=== PATIENT | male | born 1995 | race Caucasian/White ===

== ENCOUNTER 2020-12-02 19:09 | Inpatient (IN) | payer OTHER ==
[2020-12-02 19:32] VITALS: BMI 24.1
[2020-12-02] MEDS ORDERED: ONDANSETRON *ODT* 4 MG TABLET SL PRN (21:01)
[2020-12-02] MEDS ORDERED: ACETAMINOPHEN 325 MG TABLET (FP) PO PRN ×2 (21:01)
[2020-12-02] MEDS ORDERED: MAG HYDROX/AL HYDROX/SIMETH 30 ML UNIT-DOSE CUP PO PRN (21:01)
[2020-12-02] MEDS ORDERED: MAGNESIUM HYDROX 2400MG/30ML ORAL SUSPENSION 30 ML CUP PO PRN (21:01)
[2020-12-02] MEDS ORDERED: BISMUTH SUBSALICYLATE 524 MG/30 ML UD PO PRN (21:01)
[2020-12-02] MEDS ORDERED: MENTHOL/PHENOL 1 EACH UD MM PRN (21:01)
[2020-12-02] MEDS ORDERED: IBUPROFEN 400 MG TABLET (FP) PO PRN (21:01)
[2020-12-02] MEDS ORDERED: MAGNESIUM CITRATE 300 ML BOTTLE PO PRN (21:01)
[2020-12-02] MEDS ORDERED: MELATONIN 5 MG TABLETS PO SCH (22:00)
[2020-12-02] MEDS: AMOXICILLIN 500 MG CAPSULE (FP) PO SCH (22:43)
[2020-12-02] MEDS: diazePAM 5 MG TABLET PO SCH (22:54)
[2020-12-02] MEDS: THIAMINE HCL 100 MG TABLET (FP) PO SCH (22:55)
[2020-12-03] MEDS: diazePAM 5 MG TABLET PO SCH ×4 (05:58→22:02)
[2020-12-03] MEDS: AMOXICILLIN 500 MG CAPSULE (FP) PO SCH ×3 (05:59→22:03)
[2020-12-03 11:17] LABS: ALBUMIN 3.5 g/dl (3.4-5.0); CALCIUM 9.6 mg/dL (8.5-10.1)
[2020-12-03 11:18] LABS: BLOOD UREA NITROGEN 9.7 mg/dL (7-18)
[2020-12-03] MEDS: PRENATAL VITAMINS W/ FOLIC ACID TABLET (FP) PO SCH (11:34)
[2020-12-03 11:39] LABS: PLATELET COUNT 181 K/MM3 (134-434); WHITE BLOOD COUNT 6.9 K/mm3 (4.0-10.0)
[2020-12-03 11:44] LABS: HEMATOCRIT 41.9 % (35.4-49); HEMOGLOBIN 14.5 GM/dL (11.7-16.9); MCH 32.1 pg (25.7-33.7); MCHC 34.5 g/dl (32.0-35.9); MEAN PLT VOLUME 8.4 fl (7.5-11.1); RBC 4.51 M/mm3 (4.00-5.60); RDW 14.4 % (11.9-15.9)
[2020-12-03] MEDS: diazePAM 5 MG TABLET PO PRN ×2 (13:34→20:06)
[2020-12-03] MEDS: NICOTINE POLACRILEX 2 MG GUM BUC PRN (18:00)
[2020-12-03] MEDS: MELATONIN 5 MG TABLETS PO SCH (22:01)
[2020-12-03] MEDS: THIAMINE HCL 100 MG TABLET (FP) PO SCH (22:01)
[2020-12-04] MEDS: diazePAM 5 MG TABLET PO PRN ×3 (00:36→17:28)
[2020-12-04] MEDS: AMOXICILLIN 500 MG CAPSULE (FP) PO SCH ×3 (05:33→22:24)
[2020-12-04] MEDS: diazePAM 5 MG TABLET PO SCH ×3 (05:34→22:22)
[2020-12-04] MEDS: PRENATAL VITAMINS W/ FOLIC ACID TABLET (FP) PO SCH (10:03)
[2020-12-04] MEDS: METHOCARBAMOL 500 MG TABLET PO PRN (22:24)
[2020-12-04] MEDS: THIAMINE HCL 100 MG TABLET (FP) PO SCH (22:24)
[2020-12-04] MEDS: MELATONIN 5 MG TABLETS PO SCH (22:25)
[2020-12-04] MEDS: NICOTINE POLACRILEX 2 MG GUM BUC PRN (22:55)
[2020-12-05] MEDS: diazePAM 5 MG TABLET PO SCH ×2 (05:32→17:36)
[2020-12-05] MEDS: AMOXICILLIN 500 MG CAPSULE (FP) PO SCH ×3 (05:32→22:08)
[2020-12-05] MEDS: diazePAM 5 MG TABLET PO PRN ×2 (10:19→20:55)
[2020-12-05] MEDS: PRENATAL VITAMINS W/ FOLIC ACID TABLET (FP) PO SCH (10:19)
[2020-12-05] MEDS: MELATONIN 5 MG TABLETS PO SCH (22:08)
[2020-12-05] MEDS: THIAMINE HCL 100 MG TABLET (FP) PO SCH (22:08)
[2020-12-05] MEDS: METHOCARBAMOL 500 MG TABLET PO PRN (22:09)
[2020-12-06] MEDS: AMOXICILLIN 500 MG CAPSULE (FP) PO SCH (05:42)
[2020-12-06] MEDS ORDERED: diazePAM 5 MG TABLET PO ONE (06:00)
[2020-12-06 06:06] LABS: SARS-CoV-2 NAA Not Detected (Not Detected)
[2020-12-06 09:04] VITALS: BP 130/68; PULSE 72; TEMP 97.1
== END 2020-12-06 11:43 | disposition other institution (70) | DRG 774 ==
LOC: YASAS 19:09 → Y3N 20:59 → Y6N 12-05 14:30
PROVIDERS: ADMIT Allergy & Immunology; ATTEND Allergy & Immunology
PROC: HZ2ZZZZ Detoxification Services for Substance Abuse Treatment (ICD-10-PCS; principal; 2020-12-02)
DX: F10.230 Alcohol dependence with withdrawal, uncomplicated (principal); F14.20 Cocaine dependence, uncomplicated; F12.20 Cannabis dependence, uncomplicated; F17.210 Nicotine dependence, cigarettes, uncomplicated; K08.89 Other specified disorders of teeth and supporting structures; Z56.0 Unemployment, unspecified; Z59.0 Homelessness
CPT/HCPCS: 36415; 80053; 85027; 86780; 93005; 93010; C9803; U0003; U0005

== ENCOUNTER 2020-12-06 11:51 | Inpatient (IN) | payer OTHER ==
[2020-12-06] MEDS ORDERED: MAGNESIUM CITRATE 300 ML BOTTLE PO PRN (13:11)
[2020-12-06] MEDS ORDERED: MAG HYDROX/AL HYDROX/SIMETH 30 ML UNIT-DOSE CUP PO PRN (13:11)
[2020-12-06] MEDS ORDERED: guaiFENesin 200 MG/10 ML 10 ML UNIT-DOSE CUPS PO PRN (13:11)
[2020-12-06] MEDS ORDERED: P-EPHED 60MG/TRIPROLIDI 2.5MG TABLET PO PRN (13:11)
[2020-12-06] MEDS ORDERED: MENTHOL/PHENOL 1 EACH UD MM PRN (13:11)
[2020-12-06] MEDS ORDERED: MAGNESIUM HYDROX 2400MG/30ML ORAL SUSPENSION 30 ML CUP PO PRN (13:11)
[2020-12-06] MEDS ORDERED: LOPERAMIDE HCL 2 MG CAPSULE PO PRN (13:11)
[2020-12-06] MEDS ORDERED: IBUPROFEN 400 MG TABLET (FP) PO PRN (13:11)
[2020-12-06] MEDS ORDERED: NICOTINE POLACRILEX 2 MG GUM BUC PRN (13:11)
[2020-12-06] MEDS: AMOXICILLIN 500 MG CAPSULE (FP) PO SCH ×2 (14:06→21:02)
[2020-12-06] MEDS: hydrOXYzine PAMOATE 25 MG CAPSULE (FP) PO PRN (14:06)
[2020-12-06] MEDS: MELATONIN 5 MG TABLETS PO SCH (21:01)
[2020-12-06] MEDS: THIAMINE HCL 100 MG TABLET (FP) PO SCH (21:01)
[2020-12-06] MEDS ORDERED: MELATONIN 5 MG TABLETS PO SCH (22:00)
[2020-12-07] MEDS: AMOXICILLIN 500 MG CAPSULE (FP) PO SCH ×3 (06:23→21:02)
[2020-12-07] MEDS: PRENATAL VITAMINS W/ FOLIC ACID TABLET (FP) PO SCH ×2 (11:07→12:02)
[2020-12-07] MEDS: THIAMINE HCL 100 MG TABLET (FP) PO SCH (21:01)
[2020-12-07] MEDS: MELATONIN 5 MG TABLETS PO SCH (21:01)
[2020-12-08] MEDS: AMOXICILLIN 500 MG CAPSULE (FP) PO SCH ×3 (06:13→21:08)
[2020-12-08] MEDS: PRENATAL VITAMINS W/ FOLIC ACID TABLET (FP) PO SCH (10:55)
[2020-12-08] MEDS: MELATONIN 5 MG TABLETS PO SCH (21:08)
[2020-12-08] MEDS: THIAMINE HCL 100 MG TABLET (FP) PO SCH (21:08)
[2020-12-09] MEDS: AMOXICILLIN 500 MG CAPSULE (FP) PO SCH ×3 (06:06→21:40)
[2020-12-09] MEDS: PRENATAL VITAMINS W/ FOLIC ACID TABLET (FP) PO SCH (09:45)
[2020-12-09] MEDS: MELATONIN 5 MG TABLETS PO SCH (21:40)
[2020-12-09] MEDS: THIAMINE HCL 100 MG TABLET (FP) PO SCH (21:40)
[2020-12-10] MEDS: AMOXICILLIN 500 MG CAPSULE (FP) PO SCH ×3 (06:02→21:18)
[2020-12-10] MEDS: PRENATAL VITAMINS W/ FOLIC ACID TABLET (FP) PO SCH (10:04)
[2020-12-10 14:07] LABS: SARS-CoV-2 NAA Not Detected (Not Detected)
[2020-12-10] MEDS: MELATONIN 5 MG TABLETS PO SCH (21:18)
[2020-12-10] MEDS: THIAMINE HCL 100 MG TABLET (FP) PO SCH (21:18)
[2020-12-11] MEDS: AMOXICILLIN 500 MG CAPSULE (FP) PO SCH (07:04)
[2020-12-11] MEDS: PRENATAL VITAMINS W/ FOLIC ACID TABLET (FP) PO SCH (09:44)
[2020-12-11] MEDS: hydrOXYzine PAMOATE 25 MG CAPSULE (FP) PO PRN (21:45)
[2020-12-11] MEDS: MELATONIN 5 MG TABLETS PO SCH (21:45)
[2020-12-11] MEDS: THIAMINE HCL 100 MG TABLET (FP) PO SCH (21:46)
[2020-12-12] MEDS: PRENATAL VITAMINS W/ FOLIC ACID TABLET (FP) PO SCH (09:59)
[2020-12-12] MEDS: MELATONIN 5 MG TABLETS PO SCH (21:31)
[2020-12-12] MEDS: THIAMINE HCL 100 MG TABLET (FP) PO SCH (21:32)
[2020-12-12] MEDS: hydrOXYzine PAMOATE 25 MG CAPSULE (FP) PO PRN (21:32)
[2020-12-13] MEDS: PRENATAL VITAMINS W/ FOLIC ACID TABLET (FP) PO SCH (10:12)
[2020-12-13] MEDS: ACETAMINOPHEN 325 MG TABLET (FP) PO PRN ×2 (10:13→21:58)
[2020-12-13] MEDS: hydrOXYzine PAMOATE 25 MG CAPSULE (FP) PO PRN ×2 (10:13→21:58)
[2020-12-13] MEDS: THIAMINE HCL 100 MG TABLET (FP) PO SCH (21:58)
[2020-12-13] MEDS: MELATONIN 5 MG TABLETS PO SCH (21:58)
[2020-12-14] MEDS: PRENATAL VITAMINS W/ FOLIC ACID TABLET (FP) PO SCH (09:50)
[2020-12-14] MEDS: ACETAMINOPHEN 325 MG TABLET (FP) PO PRN ×2 (09:51→22:04)
[2020-12-14] MEDS: MELATONIN 5 MG TABLETS PO SCH (22:03)
[2020-12-14] MEDS: THIAMINE HCL 100 MG TABLET (FP) PO SCH (22:03)
[2020-12-15] MEDS: PRENATAL VITAMINS W/ FOLIC ACID TABLET (FP) PO SCH (09:38)
[2020-12-15] MEDS: ACETAMINOPHEN 325 MG TABLET (FP) PO PRN ×2 (09:39→21:10)
[2020-12-15] MEDS: THIAMINE HCL 100 MG TABLET (FP) PO SCH (21:10)
[2020-12-15] MEDS: MELATONIN 5 MG TABLETS PO SCH (21:10)
[2020-12-16] MEDS: PRENATAL VITAMINS W/ FOLIC ACID TABLET (FP) PO SCH (09:40)
[2020-12-16] MEDS: ACETAMINOPHEN 325 MG TABLET (FP) PO PRN ×2 (09:41→21:27)
[2020-12-16] MEDS: MELATONIN 5 MG TABLETS PO SCH (21:27)
[2020-12-16] MEDS: THIAMINE HCL 100 MG TABLET (FP) PO SCH (21:28)
[2020-12-17] MEDS: PRENATAL VITAMINS W/ FOLIC ACID TABLET (FP) PO SCH (10:12)
[2020-12-17] MEDS: ACETAMINOPHEN 325 MG TABLET (FP) PO PRN (10:13)
[2020-12-17] MEDS: MELATONIN 5 MG TABLETS PO SCH (21:38)
[2020-12-17] MEDS: THIAMINE HCL 100 MG TABLET (FP) PO SCH (21:38)
[2020-12-17] MEDS: hydrOXYzine PAMOATE 25 MG CAPSULE (FP) PO PRN (21:38)
[2020-12-18 06:47] VITALS: TEMP 97.5
[2020-12-18] MEDS: PRENATAL VITAMINS W/ FOLIC ACID TABLET (FP) PO SCH (09:55)
[2020-12-18] MEDS: hydrOXYzine PAMOATE 25 MG CAPSULE (FP) PO PRN ×2 (09:56→21:32)
[2020-12-18] MEDS: MELATONIN 5 MG TABLETS PO SCH (21:32)
[2020-12-18] MEDS: THIAMINE HCL 100 MG TABLET (FP) PO SCH (21:32)
[2020-12-19 10:12] VITALS: BP 127/78; PULSE 84
[2020-12-19] MEDS: hydrOXYzine PAMOATE 25 MG CAPSULE (FP) PO PRN ×2 (10:16→21:29)
[2020-12-19] MEDS: PRENATAL VITAMINS W/ FOLIC ACID TABLET (FP) PO SCH (10:16)
[2020-12-19] MEDS: THIAMINE HCL 100 MG TABLET (FP) PO SCH (21:29)
[2020-12-19] MEDS: MELATONIN 5 MG TABLETS PO SCH (21:29)
[2020-12-20] MEDS: PRENATAL VITAMINS W/ FOLIC ACID TABLET (FP) PO SCH (09:19)
== END 2020-12-20 10:20 | disposition home or self-care (01) | DRG 772 ==
LOC: YASAS 11:51 → Y3W 11:52 → Y5N 12-10 13:34
PROVIDERS: ADMIT Allergy & Immunology; ATTEND Allergy & Immunology
PROC: HZ42ZZZ Group Counseling for Substance Abuse Treatment, Cognitive-Behavioral (ICD-10-PCS; principal; 2020-12-06)
DX: F14.20 Cocaine dependence, uncomplicated (principal); F12.20 Cannabis dependence, uncomplicated; F17.210 Nicotine dependence, cigarettes, uncomplicated
CPT/HCPCS: C9803; U0003; U0005